=== PATIENT | female | born 1990 | race Caucasian/White ===

== ENCOUNTER 2017-11-06 19:38 | Emergency (ER) | payer BC ==
[2017-11-06 22:18] VITALS: BP 110/73
== END 2017-11-06 22:19 | disposition home or self-care (01) ==
LOC: ED 19:38
DX: O26.891 Other specified pregnancy related conditions, first trimester (principal); Z3A.13 13 weeks gestation of pregnancy
CPT/HCPCS: Q0092

== ENCOUNTER 2018-03-02 12:21 | Emergency (ER) | payer BC, MEDICAID ==
[~2018-03-02] VITALS: Ht 167.6 cm; Wt 95.7 kg
[2018-03-02 12:29] VITALS: Ht 167.6 cm; Wt 95.7 kg
[2018-03-02 14:37] VITALS: BP 132/64
== END 2018-03-02 14:37 | disposition home or self-care (01) ==
LOC: ED 12:21
DX: N39.0 Urinary tract infection, site not specified (principal); M54.9 Dorsalgia, unspecified
CPT/HCPCS: J7030; Q0092